=== PATIENT | female | born 1975 | race Caucasian/White ===

== ENCOUNTER 2017-02-08 17:45 | Emergency (ER) | payer OTHER ==
--- NOTE | ~2017-02-08 | CR72 ---
[facility] A Service of [facility] RADIOLOGY TEXT RESULTS PATIENT: MARJORIE MENDEZ LOCATION: [facility] : 75 UNIT #: [id number] AGE: [address]: Sharon Dickey MD SEX: F ORDER DR: [id number] [facility]. [place], [place] [address] [id number] MR#: [id number] Acc #: [id number] NAME: MARJORIE MENDEZ : 1975 SEX: F STUDY DATE/TIME: 02/08/2017 17:18 UNIT: [facility] ROOM: STUDY DESCRIPTION: CR Chest Single View Portable Attending Physician: Sharon Dickey M.D. Ordering Physician: Sharon Dickey M.D. Primary Care Physician: No Primary Care Physician MEDICAL IMAGING REPORT This report is preliminary unless electronic signature is present EXAM Portable chest x-ray. DATE OF EXAM 02/08/2017 HISTORY Short of air. Cough, short of air, out of meds, albuterol inhaler. COPD. 2-3 days symptom duration. REPORT AP radiograph of the chest is presented. COMPARISON No comparisons. FINDINGS Heart, mediastinum normal in size and contour. The lungs are well inflated bilaterally. There is no evidence of acute infectious or inflammatory disease. No pleural effusion or pneumothorax. No suspicious nodule. There may be mild levoscoliosis. Appearance could be in part projectional/positional in nature. No acute-appearing bony abnormality. Dictated by... Grayson Dorsey M.D. THIS IS AN ELECTRONICALLY VERIFIED REPORT Grayson Dorsey M.D. at 02/14/2017 5:57 PM CARLEE/soraya TD: 02/08/2017 19:49 [facility] A Service [facility] RADIOLOGY TEXT RESULTS PATIENT: MARJORIE MENDEZ LOCATION: [facility] : 75 UNIT #: [id number] AGE: [address]: Sharon Dickey MD SEX: F ORDER DR: JOB #: [id number] MEDICAL IMAGING REPORT Page 1 of 1 COPY
[2017-02-08 18:04] LABS: INFLUENZA A NEG (NEG); INFLUENZA B NEG (NEG)
== END 2017-02-08 19:20 | disposition home or self-care (01) ==
LOC: CED 17:45
PROVIDERS: Emergency Medicine
DX: J44.1 Chronic obstructive pulmonary disease with (acute) exacerbation (principal); Z88.0 Allergy status to penicillin; Z88.1 Allergy status to other antibiotic agents
CPT/HCPCS: 71010; 87804; 94640; 99283

== ENCOUNTER 2017-05-24 20:45 | Emergency (ER) | payer SELFPAY ==
[~2017-05-24] VITALS: Ht 175.3 cm; Wt 98.9 kg
== END 2017-05-24 21:23 | disposition left against medical advice (07) ==
LOC: CED 20:45
DX: Z53.21 Procedure and treatment not carried out due to patient leaving prior to being seen by health care provider (principal)